=== PATIENT | male | born 1985 | race Caucasian/White ===

== ENCOUNTER 2020-04-21 15:08 | Outpatient (REF) | payer BC, SELFPAY ==
[2020-04-21 21:34] LABS: Calculated LDL 101 mg/dL (<100); Cholesterol 178 mg/dL (<200); HDL Cholesterol 59 mg/dL (40-60); Triglyceride 91 mg/dL (<150)
== END 2020-04-21 15:28 ==
LOC: NCHCN 15:08
PROVIDERS: PCP Internal Medicine; Visit Provider Internal Medicine
DX: Z00.00 Encounter for general adult medical examination without abnormal findings (principal); L21.9 Seborrheic dermatitis, unspecified; Z13.220 Encounter for screening for lipoid disorders
CPT/HCPCS: 80061

== ENCOUNTER 2020-10-14 16:07 | Outpatient (REF) | payer BC, SELFPAY ==
[2020-10-15 12:03] LABS: COVID-19 RT-PCR UVMMC Result Negative (Negative)
== END 2020-10-14 16:08 | disposition home or self-care (01) ==
LOC: NCHCN 16:07
PROVIDERS: PCP Internal Medicine; Visit Provider Internal Medicine
DX: Z20.822 Contact with and (suspected) exposure to COVID-19 (principal)
CPT/HCPCS: U0003

== ENCOUNTER 2025-06-17 11:52 | Outpatient (REF) | payer BC, SELFPAY ==
[2025-06-17 21:51] LABS: ALT 42 U/L (10-49); AST 26 U/L (<34); Albumin 4.7 g/dL (3.2-5.0); Alkaline Phosphatase 70 U/L (46-116); Anion Gap 10.6 mmol/L (3-11); BUN 14 mg/dL (9-23); Bilirubin, Total 1.0 mg/dL (0.2-1.2); CO2 26.4 mmol/L (20.0-31.0); Calcium 9.4 mg/dL (8.3-10.6); Chloride 104 mmol/L (98-107); Cholesterol 201 mg/dL (<200); Glucose 89 mg/dL (74-106); HDL Cholesterol 68 mg/dL (>40); Potassium 4.4 mmol/L (3.5-5.1); Sodium 141 mmol/L (136-145); Total Protein 7.4 g/dL (5.7-8.2)
[2025-06-17 21:53] LABS: Hemoglobin A1C 5.2 % (<5.7)
== END 2025-06-17 11:53 | disposition home or self-care (01) ==
LOC: NCHCN 11:52
PROVIDERS: PCP Nurse Practitioner Family; Visit Provider Nurse Practitioner Family
DX: Z00.00 Encounter for general adult medical examination without abnormal findings (principal)
CPT/HCPCS: 80053; 80061; 83036